=== PATIENT | male | born 1995 | race Caucasian/White ===

== ENCOUNTER 2021-01-09 11:55 | Emergency (ER) | payer OTHER ==
[~2021-01-09] VITALS: Ht 170.2 cm; Wt 77.1 kg
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
[2021-01-09] MEDS ORDERED: IBUP-1957 PO (13:21)
[2021-01-09 13:35] VITALS: BP 134/68
--- NOTE | 2021-01-09 13:35 | NUR ---
Patient discharged to home in stable condition. Written and verbal after care instructions given. Patient verbalizes understanding of instruction. Pt ambulatory with a steady gait
== END 2021-01-09 13:36 | disposition home or self-care (01) ==
LOC: ER 12:04
DX: S40.012A Contusion of left shoulder, initial encounter (principal); W51.XXXA Accidental striking against or bumped into by another person, initial encounter; Y93.23 Activity, snow (alpine) (downhill) skiing, snowboarding, sledding, tobogganing and snow tubing; Y92.89 Other specified places as the place of occurrence of the external cause; Y99.8 Other external cause status
CPT/HCPCS: 73030-TC